=== PATIENT | female | born 1980 | race Caucasian/White ===

== ENCOUNTER 2021-04-07 12:08 | Emergency (ER) | payer MEDICAID ==
[~2021-04-07] VITALS: Ht 167 cm; Wt 74.0 kg
[2021-04-07 12:43] VITALS: BP 109/58
[2021-04-07] MEDS ORDERED: ACHD5005 PO (12:51)
[2021-04-07] MEDS ORDERED: PENI500T PO (12:51)
--- NOTE | 2021-04-07 12:52 | ED EENT ---
History of Present Illness General Chief Complaint: Dental Problems/Pain Stated Complaint: ABCESS TOOTH Nursing Triage Note: Pt reports 2 broken teeth on L lower and swollen gums on R upper. Worried about abcess. Has dental appt on 04/22 Source: patient Exam Limitations: no limitations History of Present Illness Date Seen by Provider: Apr 07, 2021 Time Seen by Provider: 12:49 Initial Comments Left lower dental pain for 1 week. Appointment with dentist on 04/22. Timing/Duration: abrupt Severity: moderate Location: dental Prearrival Treatment: no prearrival treatment Associated Symptoms: denies symptoms Allergies and Home Medications Patient Home Medication List Home Medication List Reviewed: Yes Review of Systems Review of Systems Constitutional: see HPI Eyes: No Symptoms Reported Ears: No Symptoms Reported Nose: no symptoms reported Mouth: no symptoms reported Throat: no symptoms reported Respiratory: no symptoms reported Cardiovascular: no symptoms reported Musculoskeletal: no symptoms reported Past Napdgpb-Wfgyxi-Npuasi Hx Patient Social History Tobacco Use?: No Use of E-Cig and/or Vaping dev: Yes Use of E-Cig and/or Vaping [place]: Current Everyday User Pt feels they are or have been: No Physical Exam Vital Signs Vital Signs - First Documented 04/07/21 12:43 Temp 35.9 Pulse 64 Resp 18 B/P (MAP) 109/58 (75) Pulse Ox 100 O2 Delivery Room Air Height, Weight, BMI Height: '" Weight: lbs. oz. kg; 26.00 BMI Method: General Appearance: WD/WN, no apparent distress Eyes: bilateral eye normal inspection, bilateral eye PERRL, bilateral eye EOMI Ears: bilateral ear auricle normal, bilateral ear canal normal, bilateral ear TM normal Nose: normal inspection, active bleeding Neck: non-tender, full range of motion Respiratory: no respiratory distress, no accessory muscle use Gastrointestinal: normal bowel sounds, non tender Neurologic/Psychiatric: alert, normal mood/affect, oriented x 3 Skin: normal color, warm/dry Progress/Results/Core Measures Results/Orders Vital Signs/I&O 04/07/21 12:43 Temp 35.9 Pulse 64 Resp 18 B/P (MAP) 109/58 (75) Pulse Ox 100 O2 Delivery Room Air Blood Pressure Mean: 75 Departure Impression Primary Impression: Dental caries Disposition: 01 HOME, SELF-CARE Condition: Stable Departure-Patient Inst. Decision time for Depature: 12:50 Referrals: [facility] (PCP) Primary Care Physician JAKE NELSON APRN (Family) Primary Care Physician Patient Instructions: Dental Pain (DC) Scripts Hydrocodone/Acetaminophen (Hydrocodone-Acetamin 5-325 mg) 1 Each Tablet 1 TAB PO Q4H PRN for PAIN-MODERATE (5-7), #14 TAB Prov: SUNIL WATSON APRN 04/07/21 Penicillin V Potassium (Penicillin V Potassium) 500 Mg Tablet 500 MG PO Q4H, #28 TAB Prov: SUNIL WATSON APRN 04/07/21 SUNIL WATSON APRN Apr 07, 2021 12:52
== END 2021-04-07 12:59 | disposition home or self-care (01) ==
LOC: ER 12:11
DX: K02.9 Dental caries, unspecified (principal); F17.200 Nicotine dependence, unspecified, uncomplicated
CPT/HCPCS: 99282

== ENCOUNTER 2021-05-19 15:35 | Emergency (ER) | payer MEDICAID ==
[~2021-05-19] VITALS: Ht 167 cm; Wt 72.0 kg
[~2021-05-19 15:35] MED LIST: ACHD5005 PO; PENI500T PO
[2021-05-19 15:50] VITALS: BP 131/77
[2021-05-19] MEDS ORDERED: NAPR-1071 PO (16:07)
[2021-05-19] MEDS ORDERED: AMOX-358 PO (16:07)
--- NOTE | 2021-05-19 16:08 | ED EENT ---
History of Present Illness General Chief Complaint: Dental Problems/Pain Stated Complaint: TOOTH PAIN / FACIAL SWELLING Source: patient Exam Limitations: no limitations History of Present Illness Date Seen by Provider: May 19, 2021 Time Seen by Provider: 16:03 Initial Comments To ER with left upper dental pain and subjective swelling for about 2 or 3 days. She has [facility] the [facility] and they will work her in as soon as they have a cancellation. She would like to get some antibiotic started in the interim. Timing/Duration: abrupt Severity: moderate Location: dental Prearrival Treatment: no prearrival treatment Associated Symptoms: denies symptoms Allergies and Home Medications Allergies Coded Allergies: phenytoin (Verified Allergy, Unknown, 05/19/21) Home Medications Hydrocodone/Acetaminophen 1 Each Tablet, 1 TAB PO Q4H PRN for PAIN-MODERATE (5- 7) Prescribed by: SUNIL WATSON on 04/07/21 1252 Penicillin V Potassium 500 Mg Tablet, 500 MG PO Q4H Prescribed by: SUNIL WATSON on 04/07/21 1251 Patient Home Medication List Home Medication List Reviewed: Yes Review of Systems Review of Systems Constitutional: see HPI Eyes: No Symptoms Reported Ears: No Symptoms Reported Nose: no symptoms reported Mouth: see HPI Throat: no symptoms reported Respiratory: no symptoms reported Cardiovascular: no symptoms reported Musculoskeletal: no symptoms reported Skin: no symptoms reported Neurological: No Symptoms Reported Hematologic/Lymphatic: No Symptoms Reported Immunological/Allergic: no symptoms reported Physical Exam Height, Weight, BMI Height: '" Weight: lbs. oz. kg; 26.00 BMI Method: General Appearance: WD/WN, no apparent distress Eyes: bilateral eye normal inspection, bilateral eye PERRL, bilateral eye EOMI Ears: bilateral ear auricle normal, bilateral ear canal normal, bilateral ear TM normal Mouth/Throat: other (A full carious and eroded teeth though there is no palpable fluctuant abscess.) Neck: non-tender, full range of motion Respiratory: no respiratory distress, no accessory muscle use Gastrointestinal: normal bowel sounds, non tender Neurologic/Psychiatric: alert, normal mood/affect, oriented x 3 Skin: normal color, warm/dry Progress/Results/Core Measures Results/Orders My Orders Orders - SUNIL WATSON COMPENSATION AGENT Ceftriaxone (Rocephin) (05/19/21 16:15) Lidocaine 1% Inj 20 Ml (Xylocaine 1% Inj (05/19/21 16:15) Departure Impression Primary Impression: Dental caries Disposition: 01 HOME, SELF-CARE Condition: Stable Departure-Patient Inst. Decision time for Depature: 16:05 Referrals: [facility] (PCP) Primary Care Physician JAKE NELSON APRN (Family) Primary Care Physician Patient Instructions: Dental Pain Add. Discharge Instructions: 1. Antibiotics as directed 2. Follow-up with your doctor next week. If you have hydrocodone left over from when I saw you last month you can use those, otherwise, use the medication prescribed today. It is safe to combine these 2 medications. 3. All discharge instructions reviewed with patient and/or family. Voiced understanding. Scripts Naproxen (Naprosyn) 500 Mg Tablet 500 MG PO BID PRN for PAIN-MODERATE (5-7), #30 TAB 0 Refills Prov: SUNIL WATSON APRN 05/19/21 Amoxicillin/Potassium Clav (Augmentin 875-125 Tablet) 1 Each Tablet 1 EACH PO BID, #14 TAB Prov: SUNIL WATSON APRN 05/19/21 SUNIL WATSON APRN May 19, 2021 16:08
[2021-05-19] MEDS ORDERED: cefTRIAXone 1,000 MG VIAL IM ONE (16:15)
[2021-05-19] MEDS ORDERED: LIDOCAINE 1% INJ 20 ML 20 ML VIAL INJ ONE (16:15)
--- OUTSIDE RECORDS SUMMARY | 2021-05-20 04:33 | XMS REPORT | Clinical Summary ---
Author Author [facility] Organization [facility] Address Unknown Phone Unavailable Care Team Providers Care Manager Action Name Role Phone Miguel Banda MD PCP Geovany Yuan MD [phone] Allergies Comments Active Allergy Reactions Severity Noted Date Metronidazole Nausea Only 06/20/2012 Triptans Shortness Of High 06/20/2012 Breath Medications End Date Status Medication Sig Dispensed Refills Start Date Active alprazolam (XANAX) 1 MG Take 1 mg by 0 tablet mouth daily. Active omeprazole (PRILOSEC) 20 Take 20 mg by 0 MG capsule mouth daily. Active alprazolam (XANAX) 1 MG Take 1 tablet 7 tablet 0 tablet by mouth 2 daily. Active desvenlafaxine (PRISTIQ) Take 1 tablet 30 tablet 0 50 MG 24 hr tablet by mouth 2 daily. Active .Verify Clinic Meds verify clinic 0 (MEDICATION LIST NOT meds 3 IMPORTED) Active Problems Problem Noted Date Migraine without aura, without mention of intractable migraine without mention of status migrainosus Resolved Problems Problem Noted Date Resolved Date Major depressive disorder, recurrent episode, severe, without mention of 06/21/2012 06/23/2012 psychotic behavior Suicidal ideation 06/21/2012 06/23/2012 Immunizations Name Administration Dates Next Due DTaP 05/21/2012 Influenza IIV3 PFree 06/17/2012 Pneumococcal 06/17/2012 Polysaccharide (23-valent) Family History Medical History Relation Name Comments Mental illness Father LC BANGTiffanie Joint disorder Mother LORETTA DIANE Mental illness Sister TAWNY HUNT Relation Name Status Comments Father LC BANGS Alive Mother LORETTA GRIMESESSANTHONY Sister TAWNY ROJASS Alive Social History Date Tobacco Use Types Packs/Day Years Used Passive Smoke Exposure - 0.5 Never Smoker Drinks/Week oz/Week Comments Alcohol Use No Sex Assigned at Date Recorded Not on file Last Filed Vital Signs Reading Time Taken Comments Vital Sign 147/98 06/22/2012 2:38 PM CDT Blood Pressure 90 06/22/2012 2:38 PM CDT Pulse 36.6 C (97.9 F) 06/22/2012 6:52 AM CDT Temperature 18 06/22/2012 6:52 AM CDT Respiratory Rate 98% 06/21/2012 6:30 PM CDT Oxygen Saturation - - Inhaled Oxygen Concentration 78.9 kg (174 lb) 06/20/2012 9:06 PM CDT Weight 172.7 cm (5' 8") 06/20/2012 9:06 PM CDT Height 26.46 06/20/2012 9:06 PM CDT Body Mass Index Plan of Treatment Health Maintenance Due Date Last Done Comments Varicella Vaccines (1 of 1983 2 - 2-dose childhood series) Hepatitis C Screening 2000 MMR Vaccines-Adult 2001 Cervical Cancer Screening 2003 Influenza Vaccine (#1) 2020 06/17/2012 DTaP,Tdap,and Td Vaccines 05/21/2022 05/21/2012 (2 - Tdap) Pneumo-Vaccine: 65+Yrs (1 2047 06/17/2012 of 1 - PPSV23) Pneumo-Vaccine: Peds (0-5 Aged Out 06/17/2012 No l onger eligible based on patient's age to Yrs) & At-Risk Patients complete this topic (6-64 Yrs) HIB Vaccines Aged Out No longer eligible based on patient's age to complete this topic IPV Vaccines Aged Out No longer eligible based on patient's age to complete this topic MenB Vaccine (Bexsero) Aged Out No longer eligi ble based on patient's age to complete this topic Meningococcal Vaccine Aged Out No longer eligib le based on patient's age to complete this topic Rotavirus Vaccines Aged Out No longer eligible based on patient's age to complete this topic Results Not on filefrom Last 3 Months Insurance Type Payer Benefit Subscriber ID Effective Phone Address Plan / Dates Group KANCARE AETNA KANCARE 19 [id number] 2020-P [address] [place] [address] [facility] [id number] Advance Directives For more information, please contact: [phone] 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
== END 2021-05-19 16:24 | disposition home or self-care (01) ==
LOC: EDUNIT# 15:35 → ER 15:37
DX: K02.9 Dental caries, unspecified (principal)
CPT/HCPCS: 99284

== ENCOUNTER 2021-06-24 20:34 | Emergency (ER) | payer MEDICAID ==
[~2021-06-24] VITALS: Ht 165 cm; Wt 68.0 kg
[~2021-06-24 20:34] MED LIST changes: +AMOX-358 PO; +NAPR-1071 PO
[2021-06-24 20:58] LABS: BILIRUBIN,URINE NEGATIVE (NEGATIVE); CLARITY,URINE SL CLOUDY; COLOR,URINE YELLOW; GLUCOSE, URINE (UA) NEGATIVE (NEGATIVE); KETONES,URINE NEGATIVE (NEGATIVE); LEUKOCYTE ESTERASE ,URINE NEGATIVE (NEGATIVE); NITRITE,URINE NEGATIVE (NEGATIVE); PROTEIN,URINE TRACE (NEGATIVE)
[2021-06-24] MEDS ORDERED: NS IV 1000 ML 1,000 ML IV SCH (21:00)
[2021-06-24] MEDS ORDERED: ONDANSETRON 4 MG/2 ML (SDV) Z0FRAN IVP ONE (21:00)
--- NOTE | 2021-06-24 21:01 | ED GU-Female ---
General Chief Complaint: - Reproductive Stated Complaint: BACK/KIDNEY PAIN, History of Present Illness Date Seen by Provider: Jun 24, 2021 Time Seen by Provider: 20:40 Initial Comments 40 year old female reports right flank pain and urinary frequency, since 1700. She attempted to work tonight and had to come home. She has taken Tylenol 650 mg 1929 and Ibuprofen 600 mg at 1730, with no relief in her pain. She just finished a course of Valtrex for potential herpes outbreak, but she never experienced any lesions. She was treated for Chlamydia approximately 1 year ago. She had complete hysterectomy, with bilat oopherectomy. History of endometriosis. She denies hematuria, history of kidney stones in the past. Timing/Duration: this evening Severity/Quality: moderate Location: suprapubic, right flank Radiation: none Associated Symptoms: No abdominal pain; dysuria; No fever/chills; lower back pain (Right flank), nausea/vomiting, urinary frequency (SHAHZAD SMITH) Allergies and Home Medications Allergies Coded Allergies: phenytoin (Verified Allergy, Unknown, 05/19/21) Patient Home Medication List Home Medication List Reviewed: Yes (SHAHZAD SMITH) Amoxicillin/Potassium Clav (Augmentin 875-125 Tablet) 1 Each Tablet, 1 EACH PO BID Prescribed by: SUNIL WATSON on 05/19/21 1607 Hydrocodone/Acetaminophen (Hydrocodone-Acetamin 5-325 mg) 1 Each Tablet, 1 TAB PO Q4H PRN for PAIN-MODERATE (5-7) Prescribed by: SUNIL WATSON on 04/07/21 1252 Naproxen (Naprosyn) 500 Mg Tablet, 500 MG PO BID PRN for PAIN-MODERATE (5-7) Prescribed by: SUNIL WATSON on 05/19/21 1607 Penicillin V Potassium (Penicillin V Potassium) 500 Mg Tablet, 500 MG PO Q4H Prescribed by: SUNIL WATSON on 04/07/21 1251 Tramadol HCl (Tramadol HCl) 50 Mg Tablet, 50 MG PO Q6H PRN for PAIN Prescribed by: SHAHZAD SMITH on 06/24/21 4339 Review of Systems Review of Systems Constitutional: no symptoms reported, see HPI Genitourinary: see HPI, dysuria, frequency, flank pain, pain, urgency : No (SHAHZAD SMITH) All Other Systemes Reviewed Negative Unless Noted: Yes (SHAHZAD SMITH) Past Eftglvh-Zsnrrn-Ksybgp Hx Family Medical History Reviewed Nursing Family Hx (SHAHZAD SMITH) Physical Exam Vital Signs Vital Signs - First Documented 06/24/21 20:55 Temp 36.9 Pulse 97 Resp 20 B/P (MAP) 131/67 (88) Pulse Ox 98 O2 Delivery Room Air (ROSIE,MEERA K DO) Vital Signs Capillary Refill : (SHAHZAD SMITH) Height, Weight, BMI Height: '" Weight: lbs. oz. kg; 25.00 BMI Method: General Appearance: WD/WN, no apparent distress Cardiovascular: normal peripheral pulses, regular rate, rhythm Respiratory: chest non-tender, lungs clear, normal breath sounds Gastrointestinal: normal bowel sounds, soft; No rebound, No tenderness Back: normal inspection, CVA tenderness (R), CVA tenderness (L) Extremities: normal range of motion, non-tender Neurologic/Psychiatric: no motor/sensory deficits, alert, normal mood/affect, oriented x 3 Skin: normal color, warm/dry (SHAHZAD SMITH) Progress/Results/Core Measures Suspected Sepsis SIRS Temperature: Pulse: Respiratory Rate: Laboratory Tests 06/24/21 21:03: White Blood Count 7.0 Blood Pressure / Mean: Laboratory Tests 06/24/21 21:03: Creatinine 0.93, Platelet Count 229, Total Bilirubin 0.6 (SHAHZAD SMITH) Results/Orders Lab Results Laboratory Tests Test 06/24/21 20:50 06/24/21 21:03 Range/Units Urine Color YELLOW Urine Clarity SL CLOUDY Urine pH 6.0 5-9 Urine Specific [place] >=1.030 1.016-1.022 Urine Protein TRACE H NEGATIVE Urine Glucose (UA) NEGATIVE NEGATIVE Urine Ketones NEGATIVE NEGATIVE Urine Nitrite NEGATIVE NEGATIVE Urine Bilirubin NEGATIVE NEGATIVE Urine Urobilinogen 0.2 < = 1.0 MG/DL Urine Leukocyte Esterase NEGATIVE NEGATIVE Urine RBC (Auto) 3+ H NEGATIVE Urine RBC 2-5 H /HPF Urine WBC NONE /HPF Urine Squamous Epithelial Cells >50 H /HPF Urine Crystals NONE /LPF Urine Bacteria TRACE /HPF Urine Casts NONE /LPF Urine Mucus LARGE H /LPF Urine Culture Indicated NO White Blood Count 7.0 4.3-11.0 10^3/uL Red Blood Count 4.53 3.80-5.11 10^6/uL Hemoglobin 14.3 11.5-16.0 g/dL Hematocrit 42 35-52 % Mean Corpuscular Volume 92 80-99 fL Mean Corpuscular Hemoglobin 32 25-34 pg Mean Corpuscular Hemoglobin Concent 35 32-36 g/dL Red Cell Distribution Width 11.5 10.0-14.5 % Platelet Count 229 130-400 10^3/uL Mean Platelet Volume 9.2 9.0-12.2 fL Immature Granulocyte % (Auto) 0 % Neutrophils (%) (Auto) 59 42-75 % Lymphocytes (%) (Auto) 34 12-44 % Monocytes (%) (Auto) 7 0-12 % Eosinophils (%) (Auto) 0 0-10 % Basophils (%) (Auto) 0 0-10 % Neutrophils # (Auto) 4.1 1.8-7.8 10^3/uL Lymphocytes # (Auto) 2.4 1.0-4.0 10^3/uL Monocytes # (Auto) 0.5 0.0-1.0 10^3/uL Eosinophils # (Auto) 0.0 0.0-0.3 10^3/uL Basophils # (Auto) 0.0 0.0-0.1 10^3/uL Immature Granulocyte # (Auto) 0.0 0.0-0.1 10^3/uL Sodium Level 139 135-145 MMOL/L Potassium Level 3.6 3.6-5.0 MMOL/L Chloride Level 105 98-107 MMOL/L Carbon Dioxide Level 23 21-32 MMOL/L Anion Gap 11 5-14 MMOL/L Blood Urea Nitrogen 8 7-18 MG/DL Creatinine 0.93 0.60-1.30 MG/DL Estimat Glomerular Filtration Rate 67 BUN/Creatinine Ratio 9 Glucose Level 85 70-105 MG/DL Calcium Level 9.0 8.5-10.1 MG/DL Corrected Calcium 8.8 8.5-10.1 MG/DL Total Bilirubin 0.6 0.1-1.0 MG/DL Aspartate Amino Transf (AST/SGOT) 22 5-34 U/L Alanine Aminotransferase (ALT/SGPT) 13 0-55 U/L Alkaline Phosphatase 52 40-136 U/L Total Protein 7.2 6.4-8.2 GM/DL Albumin 4.2 3.2-4.5 GM/DL (ROSIE,MEERA K DO) Medications Given in ED Current Medications Medications Dose Ordered Sig/Jewell Route Start Time Stop Time Status Last Admin Dose Admin Fentanyl Citrate 50 mcg ONCE ONCE IVP 06/24/21 22:00 06/24/21 22:01 DC 06/24/21 22:03 50 MCG Ondansetron HCl 4 mg ONCE ONCE IVP 06/24/21 21:00 06/24/21 21:01 DC 06/24/21 21:05 4 MG (ROSIEMEERA K DO) Vital Signs/I&O 06/24/21 06/24/21 06/24/21 06/24/21 20:55 22:24 22:25 22:26 Temp 36.9 Pulse 97 78 78 78 Resp B/P (MAP) 131/67 (88) 115/69 115/69 115/69 Pulse Ox 98 100 100 100 O2 Delivery Room Air Room Air Room Air Room Air (GRACE VELEZA K ) Vital Signs/I&O Capillary Refill : (SHAHZAD SMITH) Progress Note : Time: 20:40 Progress Note patient seen and evaluated, will obtain labs and give NS 1 L per IV, Tramadol 50 mg for pain po, and zofran 4 mg IV. 2114 UA with RBCs but no bacteria. Will obtain CT. 2129 patient reports continued pain, will give Fentanyl 50 mcg for pain. 2199 CT shows adnexal cyst on left, not compatible with pain. Patient reports improvement in pain and nausea. Possible she passed stone, with blood in urine and no stone on CT. Recommended follow up with gen surgery or CLOTH FINISHING RANGE OPERATOR, if symptoms continue. D/C instructions and follow up precautions reviewed. (SHAHZAD SMITH) Diagnostic Imaging Diagonstic Imaging: CT Plain Films/CT/US/NM/MRI: abdomen, pelvis Comments NAME: JAGDEEP HUNT Ivana COLLINS REC#: [id number] PT STATUS: REG ER : 1980 PHYSICIAN: SHAHZAD SMITH ADMIT DATE: 06/24/21/ER Draft Date of Exam:06/24/21 CT ABD/PELVIS WO(KIDNEY STONE) CT ABD/PELVIS WO (KIDNEY STONE) TECHNIQUE: Unenhanced CT imaging of the abdomen and pelvis was performed. 2-D reformats are created and submitted for interpretation. Automatic exposure controls were utilized to optimize patient dose. INDICATION: Flank and back pain. COMPARISON: None available. FINDINGS: Evaluation of the abdominal viscera is mildly limited without contrast. Lower chest: The lung bases are clear. No pericardial or pleural effusion. Peritoneum: No free intraperitoneal air or fluid. Liver and biliary system: Unenhanced liver is normal. Cholecystectomy. No biliary duct dilatation. Spleen and Pancreas: Spleen is normal. Unenhanced pancreas is grossly normal. Adrenals: Normal. tract: No renal or ureteral calculi. No obstructive uropathy. There is a 4.7 x 6.7 cm cystic structure in the left adnexa. Status post hysterectomy. No right adnexal mass. GI tract: Stomach is decompressed. No bowel obstruction. No pericolonic inflammatory changes. No appendicitis. Vasculature and Lymph nodes: Normal caliber aorta. No abdominal or pelvic lymphadenopathy. Musculoskeletal: No concerning osseous lesion. IMPRESSION: 1. No urinary tract calculi or obstructive uropathy. 2. A 6.7 x 4.7 cm left adnexal cystic structure is present and could be representing an ovarian cyst. Correlation for history of oophorectomy as patient has had hysterectomy. Pelvic ultrasound could be performed for further characterization, as deemed clinically indicated. Dictated on workstation # [id number] Dict: 06/24/212140 Trans: 06/24/212202 MERGED WITH [facility] [id number] Interpreted by: EMMANUEL ANTONIO MD Electronically signed by: Reviewed: Reviewed by Me (adnexal mass on left side, patient pain on right side) (SHAHZAD SMITH) Departure Impression Primary Impression: Adnexal cyst Disposition: 01 HOME, SELF-CARE Condition: Improved Departure-Patient Inst. Decision time for Depature: 22:00 (SHAHZAD SMITH) Referrals: [facility] (PCP) Primary Care Physician JAKE NELSON APRN (Family) Primary Care Physician Patient Instructions: Ovarian Cyst (DC) Add. Discharge Instructions: Continue to take ibuprofen 600 mg every 8 hours. Warm, moist compression to back. Use Zofran as needed for nausea or vomiting. Use tramadol as needed for pain. Establish care with an RADIOTELEGRAPH OPERATOR SERVICER for follow-up if symptoms are not improving or worsen. Return to the emergency department for new, urgent healthcare needs. All discharge instructions reviewed with patient and/or family. Voiced understanding. Scripts Tramadol HCl (Tramadol HCl) 50 Mg Tablet 50 MG PO Q6H PRN for PAIN, #20 TAB 0 Refills Prov: SHAHZAD SMITH 06/24/21 ATTENDING PHYSICIAN NOTE: I WAS PHYSICALLY PRESENT ER PHYSICIAN WHEN THIS PATIENT WAS IN ER, BUT I WAS NOT INVOLVED IN DECISION MAKING OR ANY CARE OF THIS PATIENT. (MEERA VELEZ DO) SHAHZAD SMITH Jun 24, 2021 21:01 MEERA VELEZ DO Jun 25, 2021 00:05
[2021-06-24 21:08] LABS: BASOPHILS % (AUTO) 0 % (0-10); EOSINOPHILS % (AUTO) 0 % (0-10); HEMATOCRIT 42 % (35-52); HEMOGLOBIN 14.3 g/dL (11.5-16.0); LYMPHOCYTES # (AUTO) 2.4 10^3/uL (1.0-4.0); LYMPHOCYTES % (AUTO) 34 % (12-44); MEAN CORPUSCULAR HEMOGLOBIN 32 pg (25-34); MEAN CORPUSCULAR HGB CONC 35 g/dL (32-36); MEAN CORPUSCULAR VOLUME 92 fL (80-99); MEAN PLATELET VOLUME 9.2 fL (9.0-12.2); MONOCYTES # (AUTO) 0.5 10^3/uL (0.0-1.0); MONOCYTES % (AUTO) 7 % (0-12); NEUTROPHILS # (AUTO) 4.1 10^3/uL (1.8-7.8); NEUTROPHILS % (AUTO) 59 % (42-75); PLATELET COUNT 229 10^3/uL (130-400)
[2021-06-24 21:11] LABS: BACTERIA,URINE TRACE /HPF; SQUAMOUS EPITHELIAL CELL,UR >50 /HPF
[2021-06-24 21:31] LABS: ALBUMIN 4.2 GM/DL (3.2-4.5); BILIRUBIN,TOTAL 0.6 MG/DL (0.1-1.0); CREATININE SERUM 0.93 MG/DL (0.60-1.30); POTASSIUM 3.6 MMOL/L (3.6-5.0); TOTAL PROTEIN 7.2 GM/DL (6.4-8.2)
[2021-06-24] MEDS ORDERED: fentaNYL INJ 100 MCG/2 ML AMP IVP ONE (22:00)
--- NOTE | 2021-06-24 22:04 | Diagnostic Imaging Report ---
CT ABD/PELVIS WO (KIDNEY STONE) TECHNIQUE: Unenhanced CT imaging of the abdomen and pelvis was performed. 2-D reformats are created and submitted for interpretation. Automatic exposure controls were utilized to optimize patient dose. INDICATION: Flank and back pain. COMPARISON: None available. FINDINGS: Evaluation of the abdominal viscera is mildly limited without contrast. Lower chest: The lung bases are clear. No pericardial or pleural effusion. Peritoneum: No free intraperitoneal air or fluid. Liver and biliary system: Unenhanced liver is normal. Cholecystectomy. No biliary duct dilatation. Spleen and Pancreas: Spleen is normal. Unenhanced pancreas is grossly normal. Adrenals: Normal. tract: No renal or ureteral calculi. No obstructive uropathy. There is a 4.7 x 6.7 cm cystic structure in the left adnexa. Status post hysterectomy. No right adnexal mass. GI tract: Stomach is decompressed. No bowel obstruction. No pericolonic inflammatory changes. No appendicitis. Vasculature and Lymph nodes: Normal caliber aorta. No abdominal or pelvic lymphadenopathy. Musculoskeletal: No concerning osseous lesion. IMPRESSION: 1. No urinary tract calculi or obstructive uropathy. 2. A 6.7 x 4.7 cm left adnexal cystic structure is present and could be representing an ovarian cyst. Correlation for history of oophorectomy as patient has had hysterectomy. Pelvic ultrasound could be performed for further characterization, as deemed clinically indicated. Dictated by: Dictated on workstation # [id number]
[2021-06-24] MEDS ORDERED: RX-ONDANSETRON 4 MG ODT (ZOFRAN) PPK #4 PO STA (22:14)
[2021-06-24] MEDS ORDERED: TRM50T PO (22:18)
[2021-06-24 22:25] VITALS: BP 115/69
== END 2021-06-24 22:26 | disposition home or self-care (01) ==
LOC: EDUNIT# 20:34 → ER 20:35
DX: N83.292 Other ovarian cyst, left side (principal); Z90.710 Acquired absence of both cervix and uterus; Z90.722 Acquired absence of ovaries, bilateral
CPT/HCPCS: 36415; 74176; 80053; 81000; 85025

== ENCOUNTER → 2021-06-28 | Outpatient (CLI) | payer MEDICAID ==
[~2021-06-28] MED LIST changes: +TRM50T PO
--- NOTE | 2021-06-28 17:36 | Diagnostic Imaging Report ---
PROCEDURE: US Non-ob pelvis comp/trans. TECHNIQUE: Multiple realtime grayscale images were obtained of the pelvis in various projections endovaginally. Transabdominal imaging was also performed. INDICATION: Ovarian cyst COMPARISON: CT from 06/24/2021 FINDINGS: The uterus has been removed. The right ovary has been removed. No free fluid is seen. In the left adnexa, there is a septated cystic structure measuring up to 5.2 cm in size. There may be peripheral ovarian tissue, however this is inconclusive. This could represent a lymphocele if the left ovary has been removed. IMPRESSION: 1. Cystic structure in the left adnexa measuring up to 5.2 cm in size. Ovarian tissue is not definitively seen, and this could represent a lymphocele rather than an ovarian cyst, particularly if there is a history of left oophorectomy. Dictated by: Dictated on workstation # [id number]
== END ==
LOC: RAD 12:30
PROVIDERS: ATTEND Obstetrics & Gynecology
DX: N83.292 Other ovarian cyst, left side (principal)
CPT/HCPCS: 36415; 76830; 76856; 86304

== ENCOUNTER 2021-07-14 05:34 | Outpatient (CLI) | payer MEDICAID ==
[~2021-07-14] VITALS: Ht 170.2 cm; Wt 76.4 kg
[2021-07-14] MEDS ORDERED: TRAM50TA3 PO (08:43)
[2021-07-15] MEDS ORDERED: ACET-93 PO (14:29)
[2021-07-15] MEDS ORDERED: TRAM50TA3 PO (14:29)
[2021-07-15] MEDS ORDERED: IBUP-844 PO (14:29)
[2021-07-15] MEDS ORDERED: OXC5T PO (14:29)
== END 2021-07-14 08:53 | disposition home or self-care (01) ==
LOC: PREOP 05:34
PROVIDERS: ATTEND Obstetrics & Gynecology
DX: Z01.818 Encounter for other preprocedural examination (principal)

== ENCOUNTER 2021-07-15 10:52 | Day surgery (SDC) | payer MEDICAID ==
[~2021-07-15] VITALS: Ht 170.2 cm; Wt 76.4 kg
[2021-07-15] VITALS (12 sets, daily range): BP systolic 99–134; BP diastolic 49–90
[~2021-07-15 10:52] MED LIST changes: +TRAM50TA3 PO
[2021-07-15] MEDS ORDERED: LACTATED RINGERS 1,000 ML IV PRN (11:15)
[2021-07-15] MEDS ORDERED: MIDAZOLAM 2 MG/2 ML (VERSED) VIAL IV ONE (12:15)
[2021-07-15] MEDS ORDERED: LIDOCAINE PF 2% 5 ML (XYLOCAINE) VIAL ONE (12:21)
[2021-07-15] MEDS ORDERED: proPOfol 200 MG/20 ML (DIPRIVAN) VIAL IV ONE (12:21)
[2021-07-15] MEDS ORDERED: ONDANSETRON 4 MG/2 ML (SDV) Z0FRAN ONE (12:21)
[2021-07-15] MEDS ORDERED: ROCURONIUM 10 MG/ML 5 ML SYRINGE IV ONE (12:21)
[2021-07-15] MEDS ORDERED: fentaNYL INJ 100 MCG/2 ML AMP ONE (12:21)
[2021-07-15] MEDS ORDERED: MIDAZOLAM 2 MG/2 ML (VERSED) VIAL ONE (12:21)
--- NOTE | 2021-07-15 12:43 | Progress Note-Pre Operative ---
Pre-Operative Progress Note H&P Reviewed The H&P was reviewed, patient examined and no changes noted. Date Seen by Provider: Jul 15, 2021 Time Seen by Provider: 12:25 Date H&P Reviewed: Jul 15, 2021 Time H&P Reviewed: 12:15 Pre-Operative Diagnosis: left complex adnexal cyst, pelvic pain NITISH ANTUNEZ DO Jul 15, 2021 12:43
[2021-07-15] MEDS ORDERED: LIDOCAINE/EPI 1%-1:100,000 (XYLOCAINE) 20ML ONE (12:46)
[2021-07-15] MEDS ORDERED: HYDROmorphone 2 MG/ML VIAL (DILAUDID) ONE (13:25)
[2021-07-15] MEDS ORDERED: NEOSTIGMINE 3 MG/3 ML VIAL ONE (13:56)
[2021-07-15] MEDS ORDERED: GLYCOPYRROLATE 0.2 MG/ML (ROBINUL) 2 ML VIAL ONE (13:57)
[2021-07-15] MEDS ORDERED: KETOROLAC 30 MG/ML VIAL ONE (13:59)
[2021-07-15] MEDS ORDERED: SEVOFLURANE (ULTANE) 15 ML INHAL SOLN ONE (14:02)
--- NOTE | 2021-07-15 14:27 | Operative Report ---
Operative Report Date of Procedure/Surgery Jul 15, 2021 Surgeon (s) NITISH ANTUNEZ DO Director Funeral (s): NA Post-Operative Diagnosis left pelvic cyst, possibly lymphocele left colonic adhesions Procedure Performed diagnostic laparoscopy with lysis of adhesions, Description of Procedure Anesthesia Type: General Estimated blood loss (mL): minimal Specimen(s) collected/removed none Description of the Procedure With informed consent, the patient was taken to the operating room where general anesthesia was found to be adequate. She was prepped and draped in the usual sterile fashion in the dorsolithotomy position. The bladder was drained of clear, yellow urine with a simple cath. A sponge stick was placed in the vagina to move the vaginal cuff. Attention was now turned to the abdomen and the umbilicus was injected with 0/25% Marcaine and then a 5 mm skin incision was made. Veress needle was now inserted with confirmation in internal abdominal placement with saline drop test and then a drop in pressure. Pressure was 7 mmHg. A 5 mm trocar was now inserted under direct visualization. A survey of the pelvis was done revealing no obvious adnexal mass. the patient was placed in t rendelenberg position and then two additional trocars were placed under direct visualization in the left lower quadrant lateral to the rectus muscles and avoiding the inferior epigastric vessels. There were some extensive adhesions of the colon to the left lower pelvic wall overlying the area of previous oophorectomy. I took these down sharply and bluntly to allow visualization of the left lower pelvis. There were no adnexal masses noted in either the left or right. But there was a retroperitoneal ful lness lateral to the vaginal cuff on the left and, what appeared to be, a tunnel behind this suggesting peritoneal scarring over the top of the cystic mass. The pelvis was now irrigated the the gas and instruments were removed from the abdomen under direct visualization. The sponge stick was removed from the vagina. She The skin incisions were now closed with skin affix and bandages were placed. She was awakened and taken to the recovery room in a stable condition. Following the surgery, I reviewed the operative findings with the radiological findings and Dr. Waterman, the radiologist and phone discussion with a production weigher oncologist. We agree that this fluid collection is likely retroperitoneal. He suggested the possibility of IR draining. This will be discussed with the patient and her . Findings of the Procedure colon with adhesions to the left pelvis there was a tunnel and then a soft mass in the retroperitoneum lateral to the vagina on the left, suspicious for lymphocele Allergies and Home Medications Allergies Coded Allergies: phenytoin (Verified Allergy, Unknown, 05/19/21) Patient Home Medication List Home Medication List Reviewed: Yes Acetaminophen (Acetaminophen) 500 Mg Tablet, 1,000 MG PO Q8H PRN for PAIN-MILD (1-4) Prescribed by: NITISH ANTUNEZ on 07/15/21 1429 Ibuprofen (Ibu) 600 Mg Tablet, 600 MG PO Q6HR Prescribed by: NITISH ANTUNEZ on 07/15/21 1429 Oxycodone Hcl (Oxyir Tablet) 5 Mg Tab, 5 MG PO Q4H PRN for PAIN-SEVERE (8-10) Prescribed by: NITISH ANTUNEZ on 07/15/21 1430 Tramadol HCl (Tramadol HCl) 50 Mg Tablet, 50 MG PO Q6H PRN for PAIN-MILD (1-4) Prescribed by: NITISH ANTUNEZ on 07/15/21 1430 NITISH ANTUNEZ DO Jul 15, 2021 14:27
[2021-07-15] MEDS ORDERED: IBUP-844 PO (14:29)
[2021-07-15] MEDS ORDERED: TRAM50TA3 PO (14:29)
[2021-07-15] MEDS ORDERED: OXC5T PO (14:29)
[2021-07-15] MEDS ORDERED: ACET-93 PO (14:29)
[2021-07-15] MEDS ORDERED: ACETAMINOPHEN 500 MG TAB (TYLENOL) PO PRN (14:30)
[2021-07-15] MEDS ORDERED: ONDANSETRON 4 MG/2 ML (SDV) Z0FRAN IVP PRN (14:30)
[2021-07-15] MEDS ORDERED: HYDROmorphone 2 MG/ML VIAL (DILAUDID) IV ONE (14:30)
[2021-07-15] MEDS ORDERED: KETOROLAC 30 MG/ML VIAL IVP ONE (14:30)
--- NOTE | 2021-07-15 14:32 | Discharge Inst-Women's Service ---
Discharge Inst-Women's Serv Depart Medication/Instructions New, Converted or Re-Newed RX: Transmitted to Pharmacy Instructions Will discuss with radiology to see if they can drain this area. Final Diagnosis left pelvic lymphocele Problems Reviewed?: Yes Consults/Follow Up Additional Follow Up: Yes (1 week post op) Activity Activity: Activity as Tolerated Driving Instructions: No Driving for 24 Hours NO SMOKING: NO SMOKING Diet Discharge Diet: No Restrictions Symptoms to Report to : Bleeding Excessive, Pain Increased, Constipation(Persistant), Fever Over 101 Degrees F For Any Problems or Questions: Contact Your Physician Skin/Wound Care Infection Signs and Symptoms: Increased Redness, Foul Odor of Wound, Increased Drainage, Skin Itchy or Has a Rash, Increased Swelling, Temperature Above 101 F Operative Area Clean and Dry: You May Remove Bandage (tomorrow) Stitches/Bartow/Dermabond: Dermabond Bathing Instructions: NITISH Odell DO Jul 15, 2021 14:32
--- NOTE | 2021-07-15 14:50 | Anesthesia-General Post-Op ---
General Patient Condition Mental Status/LOC: Same as Preop Cardiovascular: Satisfactory Nausea/Vomiting: Absent Respiratory: Satisfactory Pain: Controlled Complications: Absent Post Op Complications Complications None Follow Up Care/Instructions Patient Instructions None needed. Anesthesia/Patient Condition Patient Condition Patient is doing well, no complaints, stable vital signs, no apparent adverse anesthesia problems. No complications reported per nursing. [place] [facility] [place]: Yes MIKAYLA FIELDS CRNA Jul 15, 2021 14:50
[2021-07-15] MEDS ORDERED: IBUPROFEN 600 MG (MOTRIN) TAB PO SCH (18:00)
== END 2021-07-15 16:15 | disposition home or self-care (01) ==
LOC: SDC 10:52
PROVIDERS: ATTEND Obstetrics & Gynecology
DX: N73.6 Female pelvic peritoneal adhesions (postinfective) (principal); N94.89 Other specified conditions associated with female genital organs and menstrual cycle; N85.8 Other specified noninflammatory disorders of uterus; Z79.899 Other long term (current) drug therapy; F17.290 Nicotine dependence, other tobacco product, uncomplicated; Z90.710 Acquired absence of both cervix and uterus; Z90.89 Acquired absence of other organs; Z90.49 Acquired absence of other specified parts of digestive tract; Z82.49 Family history of ischemic heart disease and other diseases of the circulatory system
CPT/HCPCS: 87081

== ENCOUNTER 2021-12-15 11:36 | Emergency (ER) | payer MEDICAID ==
[~2021-12-15] VITALS: Ht 170.2 cm; Wt 66.2 kg
[~2021-12-15 11:36] MED LIST changes: +ACET-93 PO; +IBUP-844 PO; +OXC5T PO
[2021-12-15] MEDS ORDERED: NS IV 1000 ML 1,000 ML IV STA (11:53)
[2021-12-15] MEDS ORDERED: fentaNYL INJ 100 MCG/2 ML AMP IVP STA (11:53)
--- NOTE | 2021-12-15 11:56 | ED Abdominal Pain ---
General Stated Complaint: VOMITING - ABD PAIN Source of Information: Patient Exam Limitations: No Limitations History of Present Illness Date Seen by Provider: Dec 15, 2021 Time Seen by Provider: 11:55 Initial Comments Patient is a 41-year-old female presents ED with right side abdominal pain. Pain started 3 days ago. Described as cramping and constant with intermittent sharp pain. Appears to improve with vomiting. Associated diarrhea. Symptoms started 3 days ago with diarrhea. Denies of any bloody stool. She states it looks mucousy. History of cholecystectomy, appendectomy, partial hysterectomy. She initially thought it was secondary to food poisoning as she ate a wrap at a gas station. No cough, fever, chest pain, shortness of breath, sore throat, ear pain. She is concerned for vomiting bile. Denies taking medication at home Allergies and Home Medications Allergies Coded Allergies: phenytoin (Verified Allergy, Unknown, 05/19/21) Patient Home Medication List Home Medication List Reviewed: Yes Acetaminophen (Acetaminophen) 500 Mg Tablet, 1,000 MG PO Q8H PRN for PAIN-MILD (1-4) Prescribed by: NITISH ANTUNEZ on 07/15/21 1429 Cephalexin (Cephalexin) 500 Mg Tablet, 500 MG PO BID Prescribed by: SEPIDEH JEFFERS on 12/15/21 1322 Ibuprofen (Ibu) 600 Mg Tablet, 600 MG PO Q6HR Prescribed by: NITISH ANTUNEZ on 07/15/21 1429 Ondansetron (Ondansetron Odt) 4 Mg Tab.rapdis, 4 MG PO Q6H PRN for NAUSEA-1ST LINE Prescribed by: SEPIDEH JEFFERS on 12/15/21 1322 Oxycodone Hcl (Oxyir Tablet) 5 Mg Tab, 5 MG PO Q4H PRN for PAIN-SEVERE (8-10) Prescribed by: NITISH ANTUENZ on 07/15/21 1430 Tramadol HCl (Tramadol HCl) 50 Mg Tablet, 50 MG PO Q6H PRN for PAIN-MILD (1-4) Prescribed by: NITISH ANTUNEZ on 07/15/21 1430 Review of Systems Review of Systems Constitutional: No chills, No diaphoresis EENTM: No Eye Pain, No Ear Drainage, No Mouth Pain, No Mouth Swelling, No Throat Pain Respiratory: Denies Cough, Denies Orthopnea, Denies SOA With Exertion, Denies SOA at Rest Cardiovascular: Denies Chest Pain Gastrointestinal: Abdominal Pain; Denies Blood Streaked Stools; Diarrhea; Denies Rectal Bleeding; Vomiting Genitourinary: Denies Burning, Denies Discharge, Denies Frequency Musculoskeletal: No back pain, No joint pain Skin: No change in color, No change in hair/nails All Other Systems Reviewed Negative Unless Noted: Yes Past Xmeywyg-Xjpecq-Sfvdaf Hx Immunizations Up To Date First/Initial COVID19 Vaccinat: january 2021 Second COVID19 Vaccination Tez: February 2021 Third COVID19 Vaccination Date: MODERNA Seasonal Allergies Seasonal Allergies: No Past Medical History Surgery/Hospitalization HX: herpes, depression gallbladder, appendix, full hysterectomy, x 2 Surgeries: Yes (c/s x2, ) Appendectomy, Section, Gallbladder, Hysterectomy, Oophorectomy Respiratory: No Currently Using CPAP: No Currently Using BIPAP: No Cardiac: No Neurological: No Female 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 oz. kg; 26.37 BMI Method: General Appearance: WD/WN, no apparent distress HEENT: PERRL/EOMI, normal ENT inspection, TMs normal, pharynx normal Neck: non-tender, full range of motion, supple, normal inspection Respiratory: chest non-tender, lungs clear, normal breath sounds, no respiratory distress, no accessory muscle use Cardiovascular: regular rate, rhythm, no edema, no gallop, no JVD Gastrointestinal: normal bowel sounds, non tender, no organomegaly, other (Mid to right upper quadrant tenderness. Left-sided lower abdominal tenderness.) Extremities: normal range of motion, non-tender, normal inspection Back: normal inspection, no CVA tenderness, no vertebral tenderness Neurologic/Psychiatric: bulk clerk II-XII nml as tested, no motor/sensory deficits, alert, oriented x 3 Skin: normal color, warm/dry Progress/Results/Core Measures Results/Orders Lab Results Laboratory Tests Test 12/15/21 12:14 12/15/21 12:35 Range/Units White Blood Count 4.4 4.3-11.0 10^3/uL Red Blood Count 4.03 3.80-5.11 10^6/uL Hemoglobin 12.8 11.5-16.0 g/dL Hematocrit 38 35-52 % Mean Corpuscular Volume 94 80-99 fL Mean Corpuscular Hemoglobin 32 25-34 pg Mean Corpuscular Hemoglobin Concent 34 32-36 g/dL Red Cell Distribution Width 11.8 10.0-14.5 % Platelet Count 256 130-400 10^3/uL Mean Platelet Volume 9.5 9.0-12.2 fL Immature Granulocyte % (Auto) 0 % Neutrophils (%) (Auto) 49 42-75 % Lymphocytes (%) (Auto) 40 12-44 % Monocytes (%) (Auto) 9 0-12 % Eosinophils (%) (Auto) 1 0-10 % Basophils (%) (Auto) 1 0-10 % Neutrophils # (Auto) 2.2 1.8-7.8 10^3/uL Lymphocytes # (Auto) 1.7 1.0-4.0 10^3/uL Monocytes # (Auto) 0.4 0.0-1.0 10^3/uL Eosinophils # (Auto) 0.0 0.0-0.3 10^3/uL Basophils # (Auto) 0.0 0.0-0.1 10^3/uL Immature Granulocyte # (Auto) 0.0 0.0-0.1 10^3/uL Sodium Level 140 135-145 MMOL/L Potassium Level 3.9 3.6-5.0 MMOL/L Chloride Level 106 98-107 MMOL/L Carbon Dioxide Level 24 21-32 MMOL/L Anion Gap 10 5-14 MMOL/L Blood Urea Nitrogen 10 7-18 MG/DL Creatinine 0.89 0.60-1.30 MG/DL Estimat Glomerular Filtration Rate 85 BUN/Creatinine Ratio 11 Glucose Level 80 70-105 MG/DL Calcium Level 8.9 8.5-10.1 MG/DL Corrected Calcium 9.1 8.5-10.1 MG/DL Total Bilirubin 0.6 0.1-1.0 MG/DL Aspartate Amino Transf (AST/SGOT) 20 5-34 U/L Alanine Aminotransferase (ALT/SGPT) 16 0-55 U/L Alkaline Phosphatase 55 40-136 U/L Total Protein 6.6 6.4-8.2 GM/DL Albumin 3.8 3.2-4.5 GM/DL Lipase 7 L 8-78 U/L Urine Color YELLOW Urine Clarity CLEAR Urine pH 6.5 5-9 Urine Specific [place] 1.025 H 1.016-1.022 Urine Protein NEGATIVE NEGATIVE Urine Glucose (UA) NEGATIVE NEGATIVE Urine Ketones NEGATIVE NEGATIVE Urine Nitrite NEGATIVE NEGATIVE Urine Bilirubin NEGATIVE NEGATIVE Urine Urobilinogen 0.2 < = 1.0 MG/DL Urine Leukocyte Esterase NEGATIVE NEGATIVE Urine RBC (Auto) TRACE-L H NEGATIVE Urine RBC 0-2 /HPF Urine WBC 2-5 /HPF Urine Squamous Epithelial Cells 2-5 /HPF Urine Crystals NONE /LPF Urine Bacteria MODERATE H /HPF Urine Casts NONE /LPF Urine Mucus MODERATE H /LPF Urine Culture Indicated YES Urine Test NEGATIVE NEGATIVE My Orders Orders - GRACIA BLAIR Ua Culture If Indicated (12/15/21 11:49) Hcg,Qualitative Urine (12/15/21 11:50) Cbc With Automated Diff (12/15/21 11:53) Comprehensive Metabolic Panel (12/15/21 11:53) Lipase (12/15/21 11:53) Ns Iv 1000 Ml (Sodium Chloride 0.9%) (12/15/21 11:53) Ondansetron Injection (Zofran Injectio (12/15/21 12:00) Fentanyl Inj (Sublimaze Injection) (12/15/21 11:53) Urine Culture (12/15/21 12:35) Medications Given in ED Current Medications Medications Dose Ordered Sig/Jewell Route Start Time Stop Time Status Last Admin Dose Admin Ondansetron HCl 4 mg ONCE ONCE IVP 12/15/21 12:00 12/15/21 12:01 DC 12/15/21 12:45 4 MG Vital Signs/I&O 12/15/21 11:45 Pulse 87 Resp 16 B/P (MAP) 117/75 (89) Pulse Ox 100 O2 Delivery Room Air Departure Communication (Admissions) Patient presents ED with diarrhea and vomiting. Symptoms started 3 days ago. History of cholecystectomy, appendectomy, partial hysterectomy. Generalized tenderness. Vital signs stable. Normal white blood count, kidney function liver function pancreatic function. Was given pain medication Zofran and fluid with significant improvement. Urinalysis somewhat concerning however cultures currently pending. She states a week ago she got checked for sexual transmitted factions a were concerned for possible UTI but was not prescribed antibiotics. Will discharge with Keflex. No surgical belly. She appears much better at this time. Likely viral. No peritoneal signs. Will discharge with Zofran. Recommend hydration. Impression Primary Impression: Abdominal pain Disposition: HOME, SELF-CARE Condition: Stable Departure-Patient Inst. Decision time for Depature: 13:21 Referrals: [facility] (PCP) Primary Care Physician JAKE NELSON APRN (Family) Primary Care Physician Patient Instructions: Abdominal Pain, Adult ED Scripts Ondansetron (Ondansetron Odt) 4 Mg Tab.rapdis 4 MG PO Q6H PRN for NAUSEA-1ST LINE, #10 TAB Prov: GRACIA BLAIR 12/15/21 Cephalexin (Cephalexin) 500 Mg Tablet 500 MG PO BID for 7 Days, #14 TAB Prov: GRACIA BLAIR 12/15/21 GRACIA BLAIR Dec 15, 2021 11:55
[2021-12-15] MEDS ORDERED: ONDANSETRON 4 MG/2 ML (SDV) Z0FRAN IVP ONE (12:00)
[2021-12-15 12:19] LABS: BASOPHILS % (AUTO) 1 % (0-10); EOSINOPHILS % (AUTO) 1 % (0-10); HEMATOCRIT 38 % (35-52); HEMOGLOBIN 12.8 g/dL (11.5-16.0); LYMPHOCYTES # (AUTO) 1.7 10^3/uL (1.0-4.0); LYMPHOCYTES % (AUTO) 40 % (12-44); MEAN CORPUSCULAR HEMOGLOBIN 32 pg (25-34); MEAN CORPUSCULAR HGB CONC 34 g/dL (32-36); MEAN CORPUSCULAR VOLUME 94 fL (80-99); MEAN PLATELET VOLUME 9.5 fL (9.0-12.2); MONOCYTES # (AUTO) 0.4 10^3/uL (0.0-1.0); MONOCYTES % (AUTO) 9 % (0-12); NEUTROPHILS # (AUTO) 2.2 10^3/uL (1.8-7.8); NEUTROPHILS % (AUTO) 49 % (42-75); PLATELET COUNT 256 10^3/uL (130-400); WHITE BLOOD COUNT 4.4 10^3/uL (4.3-11.0)
[2021-12-15 12:29] LABS: ALBUMIN 3.8 GM/DL (3.2-4.5); POTASSIUM 3.9 MMOL/L (3.6-5.0)
[2021-12-15 12:30] LABS: CALCIUM 8.9 MG/DL (8.5-10.1)
[2021-12-15 12:31] LABS: TOTAL PROTEIN 6.6 GM/DL (6.4-8.2)
[2021-12-15 12:33] LABS: BILIRUBIN,TOTAL 0.6 MG/DL (0.1-1.0)
[2021-12-15 12:35] LABS: CREATININE SERUM 0.89 MG/DL (0.60-1.30)
[2021-12-15 12:43] LABS: BILIRUBIN,URINE NEGATIVE (NEGATIVE); CLARITY,URINE CLEAR; COLOR,URINE YELLOW; GLUCOSE, URINE (UA) NEGATIVE (NEGATIVE); KETONES,URINE NEGATIVE (NEGATIVE); LEUKOCYTE ESTERASE ,URINE NEGATIVE (NEGATIVE); NITRITE,URINE NEGATIVE (NEGATIVE); PH,URINE 6.5 (5-9); PROTEIN,URINE NEGATIVE (NEGATIVE)
[2021-12-15 13:05] LABS: BACTERIA,URINE MODERATE /HPF; RBC,URINE 0-2 /HPF
[2021-12-15] MEDS ORDERED: CEPH500T PO (13:22)
[2021-12-15] MEDS ORDERED: ONDA4TAB11 PO (13:22)
[2021-12-15 13:56] VITALS: BP 124/76
== END 2021-12-15 13:56 | disposition home or self-care (01) ==
LOC: EDUNIT# 11:36 → ER 11:37
DX: R10.11 Right upper quadrant pain (principal); R10.32 Left lower quadrant pain; R11.10 Vomiting, unspecified; Z90.49 Acquired absence of other specified parts of digestive tract; Z90.711 Acquired absence of uterus with remaining cervical stump; Z32.02 Encounter for pregnancy test, result negative
CPT/HCPCS: 36415; 80053; 81000; 83690; 84703; 85025; 87077; 87088; 87186

== ENCOUNTER 2022-04-02 03:45 | Emergency (ER) | payer MEDICAID ==
[~2022-04-02 03:45] MED LIST changes: +CEPH500T PO; +ONDA4TAB11 PO
[2022-04-02] MEDS ORDERED: LACTATED RINGERS 1,000 ML IV ONE (04:00)
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
[2022-04-02 04:04] LABS: BASOPHILS % (AUTO) 1 % (0-10); EOSINOPHILS # (AUTO) 0.1 10^3/uL (0.0-0.3); EOSINOPHILS % (AUTO) 1 % (0-10); HEMATOCRIT 39 % (35-52); HEMOGLOBIN 13.5 g/dL (11.5-16.0); LYMPHOCYTES # (AUTO) 2.1 10^3/uL (1.0-4.0); LYMPHOCYTES % (AUTO) 34 % (12-44); MEAN CORPUSCULAR HEMOGLOBIN 31 pg (25-34); MEAN CORPUSCULAR HGB CONC 34 g/dL (32-36); MEAN CORPUSCULAR VOLUME 91 fL (80-99); MEAN PLATELET VOLUME 9.2 fL (9.0-12.2); MONOCYTES # (AUTO) 0.7 10^3/uL (0.0-1.0); MONOCYTES % (AUTO) 11 % (0-12); NEUTROPHILS # (AUTO) 3.3 10^3/uL (1.8-7.8); NEUTROPHILS % (AUTO) 53 % (42-75); PLATELET COUNT 228 10^3/uL (130-400); WHITE BLOOD COUNT 6.1 10^3/uL (4.3-11.0)
[2022-04-02 04:17] LABS: ALBUMIN 3.9 GM/DL (3.2-4.5); CHLORIDE 104 MMOL/L (98-107); POTASSIUM 3.2 MMOL/L (3.6-5.0); SODIUM 138 MMOL/L (135-145)
[2022-04-02 04:18] LABS: CALCIUM 8.7 MG/DL (8.5-10.1)
[2022-04-02 04:19] LABS: GLUCOSE 81 MG/DL (70-105)
[2022-04-02 04:20] LABS: TOTAL PROTEIN 6.9 GM/DL (6.4-8.2)
[2022-04-02 04:21] LABS: BILIRUBIN,TOTAL 1.4 MG/DL (0.1-1.0); CARBON DIOXIDE 21 MMOL/L (21-32)
[2022-04-02 04:23] LABS: ALKALINE PHOSPHATASE 63 U/L (40-136); CREATININE SERUM 0.84 MG/DL (0.60-1.30); GFR ESTIMATED 91
[2022-04-02 04:25] LABS: BUN/CREATININE RATIO 19
[2022-04-02 04:26] LABS: ALANINE AMINOTRANSFERASE 18 U/L (0-55); CREATINE KINASE 212 U/L (29-168)
[2022-04-02 04:28] LABS: BILIRUBIN,URINE NEGATIVE (NEGATIVE); CLARITY,URINE CLEAR; COLOR,URINE ORANGE; GLUCOSE, URINE (UA) NEGATIVE (NEGATIVE); KETONES,URINE 1+ (NEGATIVE); LEUKOCYTE ESTERASE ,URINE NEGATIVE (NEGATIVE); NITRITE,URINE NEGATIVE (NEGATIVE); PROTEIN,URINE NEGATIVE (NEGATIVE)
[2022-04-02 04:34] LABS: CREATINE KINASE MB 1.3 NG/ML (<6.6)
[2022-04-02 04:42] LABS: BACTERIA,URINE NEGATIVE /HPF; RBC,URINE RARE /HPF; SQUAMOUS EPITHELIAL CELL,UR RARE /HPF
[2022-04-02 04:52] LABS: AMPHETAMINE SCREEN, URINE POSITIVE (NEGATIVE); BARBITURATE SCREEN URINE NEGATIVE (NEGATIVE); BENZODIAZEPINES SCREEN URINE NEGATIVE (NEGATIVE); CANNABINOID SCREEN, URINE NEGATIVE (NEGATIVE); COCAINE SCREEN URINE NEGATIVE (NEGATIVE); METHADONE STAT NEGATIVE (NEGATIVE); OPIATE SCREEN URINE NEGATIVE (NEGATIVE); OXYCODONE STAT NEGATIVE (NEGATIVE); PROPOXYPHENE STAT NEGATIVE (NEGATIVE); TRICYCLIC ANTIDEPRESSANTS SCRE NEGATIVE (NEGATIVE)
[2022-04-02 05:17] VITALS: BP 112/65
== END 2022-04-02 05:18 | disposition home or self-care (01) ==
LOC: EDUNIT# 03:45 → ER 03:47
DX: F15.90 Other stimulant use, unspecified, uncomplicated (principal); G40.909 Epilepsy, unspecified, not intractable, without status epilepticus; F17.210 Nicotine dependence, cigarettes, uncomplicated; Z91.14 Patient's other noncompliance with medication regimen
CPT/HCPCS: 36415; 80053; 80306; 80320; 81000; 82550; 82553; 83735; 83874; 84443; 85025; 93041

== ENCOUNTER 2022-09-26 08:13 | Emergency (ER) | payer MEDICAID ==
[~2022-09-26] VITALS: Ht 167 cm; Wt 62.0 kg
--- NOTE | 2022-09-26 08:40 | ED Neurological Problem ---
General Chief Complaint: Neurological Problems Stated Complaint: SEIZURES Nursing Triage Note: ARRIVED VIA AMB TO ROOM 05. S/O STATES SHE HAS HAD 10+SIEZURES IN THE LAST 3 HOURS. 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 Source: patient, family ("friend"/boyfriend) Exam Limitations: clinical condition History of Present Illness Date Seen by Provider: Sep 26, 2022 Time Seen by Provider: 08:27 Initial Comments Patient is a 42-year-old female brought to the emergency department POV by her boyfriend chief complaint seizures. Patient has had multiple seizures over the last 3 or 4 hours according to the boyfriend. She was having periods while sleeping where she would stiffen in the bed. They lasted up to about 45 seconds in duration. No injury, tongue biting. He states she would talk intermittently after them. She states she has had seizures since after the of her last child many years ago. She is not currently on antiseizure medications because "I do not want to take them and to quit". No recent fevers or chills. No cough, runny nose or sore throat. No abdominal pain, nausea or vomiting. No urinary complaints. She is awake, alert and oriented. She is quite sleepy. Slow responses. She denies alcohol use last night. She did not eat supper. She admits to LSD last night. She claims she is never taken it before. She denies any other recreational drugs. Review of past medical history/ED visit shows the patient is a methamphetamine user. Hysterectomy. Allergies to Dilantin. Timing/Duration: 4-6 hours Severity: moderate Associated Symptoms: denies symptoms Allergies and Home Medications Allergies Coded Allergies: phenytoin (Verified Allergy, Unknown, 05/19/21) Patient Home Medication List Home Medication List Reviewed: Yes Acetaminophen (Acetaminophen) 500 Mg Tablet, 1,000 MG PO Q8H PRN for PAIN-MILD (1-4) Prescribed by: NITISH ANTUNEZ on 07/15/21 1429 Cephalexin (Cephalexin) 500 Mg Tablet, 500 MG PO BID Prescribed by: SEPIDEH JEFFERS on 12/15/21 1322 Ibuprofen (Ibu) 600 Mg Tablet, 600 MG PO Q6HR Prescribed by: NITIHS ANTUNEZ on 07/15/21 1429 Ondansetron (Ondansetron Odt) 4 Mg Tab.rapdis, 4 MG PO Q6H PRN for NAUSEA-1ST LINE Prescribed by: SEPIDEH JEFFERS on 12/15/21 1322 Oxycodone Hcl (Oxyir Tablet) 5 Mg Tab, 5 MG PO Q4H PRN for PAIN-SEVERE (8-10) Prescribed by: NITISH ANTUNEZ on 07/15/21 1430 Tramadol HCl (Tramadol HCl) 50 Mg Tablet, 50 MG PO Q6H PRN for PAIN-MILD (1-4) Prescribed by: NITISH ANTUNEZ on 07/15/21 1430 Review of Systems Review of Systems Constitutional: see HPI Eyes: No Symptoms Reported Ears, Nose, Mouth, Throat: no symptoms reported Respiratory: no symptoms reported Cardiovascular: no symptoms reported Gastrointestinal: no symptoms reported Genitourinary: no symptoms reported : No Musculoskeletal: other (body aches all over) Skin: no symptoms reported Psychiatric/Neurological: No Symptoms Reported Past Tvfjqtj-Obxwrn-Gpqnxo Hx Patient Social History Tobacco Use?: Yes Tobacco type used: Cigarettes Substance use?: Yes Substance type: Marijuana Additional substance use comme: LSD Alcohol Use?: Yes Alcohol Frequency: Once in a while Immunizations Up To Date First/Initial COVID19 Vaccinat: january 2021 Second COVID19 Vaccination Tez: February 2021 Third COVID19 Vaccination Date: Seasonal Allergies Seasonal Allergies: No Past Medical History Surgery/Hospitalization HX: herpes, depression gallbladder, appendix, full hysterectomy, x 2 Surgeries: Yes (c/s x2, DX LAPAROSCOPY 07/2021) Appendectomy, Section, Gallbladder, Hysterectomy, Oophorectomy Respiratory: No Currently Using CPAP: No Currently Using BIPAP: No Cardiac: No Neurological: Yes Seizure Disorder Reproductive Disorders: Yes Female Reproductive Disorders: Menstrual Problems, Endometriosis 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 PAST SURGICAL HISTORY: -07/15/21--BY DR. ANTUNEZ left pelvic cyst, possibly lymphocele left colonic adhesions Procedure Performed diagnostic laparoscopy with lysis of adhesions, -HYSTERECTOMY[facility] L[facility] 2014 - X 2 -CHOLECYSTECTOMY -APPENDECTOMY Physical Exam Vital Signs Vital Signs - First Documented 09/26/22 08:18 Temp 35.7 Pulse 91 Resp 16 B/P (MAP) 122/79 (93) Pulse Ox 100 O2 Delivery Room Air Capillary Refill : Less Than 3 Seconds Height, Weight, BMI Height: '" Weight: lbs. oz. kg; 22.00 BMI Method: General Appearance: WD/WN, no apparent distress HEENT: PERRL/EOMI, pharynx normal Neck: non-tender, full range of motion, supple Respiratory: lungs clear, normal breath sounds, no respiratory distress, no accessory muscle use Cardiovascular: regular rate, rhythm Peripheral Pulses: 2+ Radial Pulses (R), 2+ Radial Pulses (L) Gastrointestinal: normal bowel sounds, non tender, soft Extremities: normal range of motion, normal inspection, no pedal edema, no calf tenderness, other (tender to touch all over) Neurologic/Psychiatric: alert, oriented x 3, other (somnolent) Crainal Nerves: normal hearing, normal speech, PERRL Motor/Sensory: no motor deficit, no sensory deficit Skin: normal color, warm/dry Progress/Results/Core Measures Results/Orders Lab Results Laboratory Tests Test 09/26/22 08:50 Range/Units Sodium Level 139 135-145 MMOL/L Potassium Level 3.7 3.6-5.0 MMOL/L Chloride Level 107 98-107 MMOL/L Carbon Dioxide Level 23 21-32 MMOL/L Anion Gap 9 5-14 MMOL/L Blood Urea Nitrogen 15 7-18 MG/DL Creatinine 0.82 0.60-1.30 MG/DL Estimat Glomerular Filtration Rate 93 BUN/Creatinine Ratio 18 Glucose Level 93 70-105 MG/DL Calcium Level 8.9 8.5-10.1 MG/DL Total Creatine Kinase 189 H 29-168 U/L My Orders Orders - ROMAIN ARCHER MD Basic Metabolic Panel (09/26/22 08:36) Creatine Kinase (09/26/22 08:36) Accucheck Stat ONCE (09/26/22 08:36) Vital Signs/I&O 09/26/22 08:18 Temp 35.7 Pulse 91 Resp 16 B/P (MAP) 122/79 (93) Pulse Ox 100 O2 Delivery Room Air Blood Pressure Mean: 93 Progress Progress Note #1: Time: 09:19 Progress Note Notified by nursing staff that Iqra had a "seizure". The tech, Trudi, was in the room and stated that her bilateral upper extremities flexed but did not convulse. This lasted for a few seconds. About 60 seconds later the patient is able to answer questions. Vital signs remained stable. Progress Note #2: Time: 09:33 Progress Note Patient seen and evaluated, 42-year-old with stated history of seizure disorder. Medical noncompliance, chooses not to take seizure medications. 1 episode of brief seizure-like activity in the emergency department that spontaneously resolved. No ongoing focal neurologic deficits. Basic chemistry obtained and reviewed along with total CK. CK slightly elevated at 189. No concerning findings for sepsis, stroke, no clinical evidence for concern of acute intracerebral pathology such as hemorrhagic stroke. Consideration for CT head however history and physical do not support the need and was therefore not ordered. Patient is back to neurologic baseline. Reviewed results with her and her significant other who is at the bedside. All questions are sought and answered. Departure Impression Primary Impression: History of seizures Additional Impression: LSD reaction Disposition: 01 HOME, SELF-CARE Condition: Stable Departure-Patient Inst. Decision time for Depature: 09:32 Referrals: [facility]/ (PCP) Primary Care Physician JAKE NELSON APRN (Family) Primary Care Physician Patient Instructions: Seizures, Adult (DC) Add. Discharge Instructions: You should really consider follow-up with your primary care physician and will be starting an antiseizure medication. Drink plenty of fluids today to stay well-hydrated. Try and eat well and get some good sleep today. Avoid illegal drugs because these can lower your seizure threshold and cause you to have seizures more often. Return to the emergency department for any new, concerning or emergent complaints. Copy Copies To 1: ANNA MARIE ALVAREZ KATHRYN M MD Sep 26, 2022 08:40
[2022-09-26 09:22] LABS: CALCIUM 8.9 MG/DL (8.5-10.1); CREATININE SERUM 0.82 MG/DL (0.60-1.30); POTASSIUM 3.7 MMOL/L (3.6-5.0)
[2022-09-26 09:44] VITALS: BP 110/60
== END 2022-09-26 09:44 | disposition home or self-care (01) ==
LOC: EDUNIT# 08:13 → ER 08:16
DX: G40.909 Epilepsy, unspecified, not intractable, without status epilepticus (principal); F16.90 Hallucinogen use, unspecified, uncomplicated; F17.210 Nicotine dependence, cigarettes, uncomplicated; Z28.310 Unvaccinated for COVID-19
CPT/HCPCS: 36415; 80048; 82550; 99281